=== PATIENT | female | born 1990 | race Caucasian/White ===

== ENCOUNTER 2017-06-09 15:51 | Emergency (ER) | payer BC ==
[~2017-06-09] VITALS: Wt 67.9 kg
[~2017-06-09 15:51] MED LIST: BEN25 PO; FERR27TA PO; HC30CR25 TOP; PREN1TAB49 PO
[2017-06-09] MEDS ORDERED: TRIA15OI9 TOP (16:30)
[2017-06-09] MEDS ORDERED: BEN25 PO (16:30)
[2017-06-09] MEDS ORDERED: CETI10CA PO (16:31)
--- NOTE | 2017-06-09 16:36 | ERD ---
ER Documentation Chief Complaint Chief Complaint RASH AND ITCHING X 2 WEEKS HPI Patient is a 26-year-old female who presents to the emergency department for concerns of a rash and itching to her bilateral hands 2 weeks. Patient denies any new lotions, creams, foods, medications or environmental changes. Patient denies using any medication to the affected areas. Patient states she has had a rash similar to this rash in the past and she was told by a meat boner that it was just her skin. Patient denies any fevers or chills. Patient denies any chest pain, shortness of breath, nausea, vomiting, lip swelling, tongue swelling or loss of consciousness. ROS All systems reviewed and are negative except as per history of present illness. Medications Home Meds Active Scripts Cetirizine Hcl* (Zyrtec*) 10 Mg Capsule, 10 MG PO DAILY, #10 TAB.CHEW Prov:AISHA OTOOLE PA-C 06/09/17 Diphenhydramine Hcl* (Benadryl*) 25 Mg Cap, 25 MG PO Q6, #20 CAP Prov:AISHA OTOOLE PA-C 06/09/17 Triamcinolone Acetonide (Triamcinolone Acetonide) 0.5% - 15 Gm Oint..gm., 1 APPLIC TOP BID, #1 TUB Prov:AISHA OTOOLE PA-C 06/09/17 Diphenhydramine Hcl* (Benadryl*) 25 Mg Cap, 25 MG PO Q6 Y for ITCHING, #30 TAB Prov:INOCENTE STEELE M. 01/22/15 Hydrocortisone* Topical (Hydrocortisone* Topical) 2.5%-28.3 Gm Cream..g., 1 APPLIC TOP BID for 14 Days, TUB Prov:INOCENET STEELE M. 01/22/15 Reported Medications Ferrous Sulfate (Iron) 1 Tab Tablet, 1 TAB PO DAILY 06/03/12 Vits W-Ca,Fe,Fa(<1MG) () 1 Tab Tablet, 1 TAB PO DAILY 06/03/12 Allergies Allergies: Coded Allergies: No Known Allergy (Unverified , 04/03/14) PMhx/Soc History of Surgery: No Anesthesia Reaction: No Hx Neurological Disorder: No Hx Respiratory Disorders: No Hx Cardiac Disorders: No Hx Psychiatric Problems: No Hx Miscellaneous Medical Probl: No Hx Alcohol Use: No Hx Substance Use: No Hx Tobacco Use: No Smoking Status: Never smoker Physical Exam Vitals Vital Signs Date Time Temp Pulse Resp B/P Pulse Ox O2 Delivery O2 Flow Rate FiO2 06/09/17 15:54 98.1 99 18 131/71 99 Physical Exam GENERAL: Well-developed, well-nourished female. Appears in no acute distress. Speaking in full sentences. HEAD: Normocephalic, atraumatic. EYES: Pupils are equally reactive bilaterally. EOMs grossly intact. No conjunctival erythema. ENT: Moist mucous membranes. No uvula deviation. No kissing tonsils. No lip swelling. No tongue swelling. NECK: Supple. No meningismus. Normal range of motion of the neck. EXTREMITIES: Equal pulses bilaterally. No peripheral clubbing, cyanosis or edema. No unilateral leg swelling. NEUROLOGIC: Alert and oriented. Moving all four extremities without any difficulty. Normal speech. Steady gait. SKIN: Erythematous, excoriated skin noted in patient's bilateral dorsal wrists. No lymphatic streaking. No warmth. No active bleeding or discharge. Negative Nikolsky sign. Procedures/MDM MEDICAL DECISION MAKING: This is a 26-year-old female who presents with a rash and itching to her bilateral hands 2 weeks. Vital signs were reviewed. Patient was afebrile. Patient is not diabetic. Skin exam revealed findings consistent with eczema. I encouraged the patient to avoid scratching the lesions. Patient was advised to follow-up with an plumber helper for skin G testing.. I have a much lower clinical concern for necrotizing fasciitis, sepsis, gangrene, Bubba-Fabio syndrome, toxic epidural necrolysis, abscess, cellulitis, herpes zoster, viral exanthem, anaphylaxis, allergic reaction, fungal infection, insect bit. PRESCRIPTIONS: Triamcinolone cream, Benadryl, Zyrtec DISCHARGE: At this time, patient is stable for discharge and outpatient management. I have advised the patient to avoid any new products, creams or possible allergens. I have advised the patient to avoid scratching the lesions. I have instructed the patient to follow-up with his/her primary care physician in 1-2 days. If symptoms persist, patient may need to see a meat boner for further examinations and testing. I have instructed the patient to promptly return to the ER at any time for any new or worsening symptoms including increased pain, fever, redness, swelling, warmth, difficulty breathing or vomiting. The patient and/or family expressed understanding of and agreement with this plan. All questions were answered. Home care instructions were provided. Disclaimer: Inadvertent spelling and grammatical errors are likely due to EHR/ dictation software use and do not reflect on the overall quality of patient care. Also, please note that the electronic time recorded on this note does not necessarily reflect the actual time of the patient encounter. Departure Diagnosis: Primary Impression: Acute eczema of hand Condition: Stable Patient Instructions: Atopic Dermatitis (Eczema) Referrals: LITZY MCGREGOR MD,IRAIDA WHITTEN,FRANCO KIM,THANG CHAU,THANG Calderón [facility] YOU HAVE RECEIVED A MEDICAL SCREENING EXAM AND THE RESULTS INDICATE THAT YOU DO NOT HAVE A CONDITION THAT REQUIRES URGENT TREATMENT IN THE EMERGENCY DEPARTMENT. FURTHER EVALUATION AND TREATMENT OF YOUR CONDITION CAN WAIT UNTIL YOU ARE SEEN IN YOUR DOCTORS OFFICE WITHIN THE NEXT 1-2 DAYS. IT IS YOUR RESPONSIBILITY TO MAKE AN APPOINTMENT FOR FOLOW-UP CARE. IF YOU HAVE A PRIMARY DOCTOR --you should call your primary doctor and schedule an appointment IF YOU DO NOT HAVE A PRIMARY DOCTOR YOU CAN CALL OUR PHYSICIAN REFERRAL HOTLINE AT IF YOU CAN NOT AFFORD TO SEE A PHYSICIAN YOU CAN CHOSE FROM THE FOLLOWING [facility] [address] [facility]. [facility] [address] [facility] [facility] [address] [facility] [facility] [address] [facility] [facility] [address] [facility]. [facility]. [address] [facility]. [facility] YOU HAVE RECEIVED A MEDICAL SCREENING EXAM AND THE RESULTS INDICATE THAT YOU DO NOT HAVE A CONDITION THAT REQUIRES URGENT TREATMENT IN THE EMERGENCY DEPARTMENT. FURTHER EVALUATION AND TREATMENT OF YOUR CONDITION CAN WAIT UNTIL YOU ARE SEEN IN YOUR DOCTORS OFFICE WITHIN THE NEXT 1-2 DAYS. IT IS YOUR RESPONSIBILITY TO MAKE AN APPOINTMENT FOR FOLOW-UP CARE. IF YOU HAVE A PRIMARY DOCTOR --you should call your primary doctor and schedule and appointment IF YOU DO NOT HAVE A PRIMARY DOCTOR YOU CAN CALL OUR PHYSICIAN REFERRAL HOTLINE AT . IF YOU CAN NOT AFFORD TO SEE A PHYSICIAN YOU CAN CHOSE FROM THE FOLLOWING [facility] INSTITUTIONS: [facility] [address] [place] [address] [facility] [address] [place] [address] [facility] [address] [place] [address] Additional Instructions: Call your primary care doctor TOMORROW for an appointment during the next 1-2 days.See the doctor sooner or return here if your condition worsens before your appointment time. Follow up with your doctor for referral to an plumber helper for allergy skin testing. AISHA OTOOLE PA-C Jun 09, 2017 16:36
== END 2017-06-09 16:46 | disposition home or self-care (01) ==
LOC: FTE 15:51
DX: L30.9 Dermatitis, unspecified (principal)
CPT/HCPCS: 99283

== ENCOUNTER 2019-03-10 12:39 | Inpatient (IN) | payer BC ==
[~2019-03-10] VITALS: Ht 154.9 cm; Wt 61.3 kg
[~2019-03-10 12:39] MED LIST changes: +CETI10CA PO; +TRIA15OI9 TOP
[2019-03-10] MEDS ORDERED: LACTATED RINGER'S 1,000 ML IV PRN (16:33)
[2019-03-10 16:44] VITALS: BP 110/72; PULSE 77; RESP 18
[2019-03-10] MEDS ORDERED: OXYTOCIN 30 UNITS/LR 500 ML IV PRN (17:00)
[2019-03-10] MEDS ORDERED: CARBOPROST 250 MCG INJ IM PRN (17:00)
[2019-03-10] MEDS ORDERED: IBUPROFEN 600 MG TAB PO PRN (17:00)
[2019-03-10] MEDS ORDERED: OXYTOCIN 30 UNITS/LR 500 ML IV SCH ×3 (17:00→17:30)
[2019-03-10] MEDS ORDERED: METHYLERGONOVINE 0.2 MG INJ IM PRN (17:00)
[2019-03-10] MEDS ORDERED: LIDOCAINE 1% (MPF) 30 ML INJ INJ PRN (17:00)
[2019-03-10] MEDS ORDERED: MISOPROSTOL 200 MCG TAB PR PRN (17:00)
[2019-03-10] MEDS ORDERED: BUTORPHANOL 2 MG INJ IV PRN (17:00)
[2019-03-10] MEDS: LACTATED RINGER'S 1,000 ML IV SCH ×2 (17:08→22:15)
[2019-03-10 17:10] VITALS: Ht 154.9 cm; Wt 61.3 kg
[2019-03-10] MEDS ORDERED: MINERAL OIL LIGHT 10 ML VIAL TOP PRN (22:30)
--- NOTE | 2019-03-11 05:37 | PREOPHP ---
DATE OF ADMISSION: 03/10/2019 HISTORY OF PRESENT ILLNESS: Ms. Ernestina Dowell is a 28-year-old 2, para 1, EDC 03/14/2019 intrauterine at 39 weeks and 3 days gestational age initially referred for delivery by perinatologist, Dr. Bhakta, secondary to low growth profile and abnormal blood flow to the middle cerebral artery; however, patient was in labor and denies any vaginal bleeding or discharge. Her care took place at approximately 18 weeks at [facility]. PAST MEDICAL HISTORY: None. MEDICATIONS: vitamins. PAST SURGICAL HISTORY: None. OBSTETRICAL HISTORY: Vaginal delivery x1. GYNECOLOGIC HISTORY: Twelve, regular 3 to 4 days. Denies any sexually transmitted infections. Sexually active with 1 partner. SOCIAL HISTORY: Denies any smoking, drugs or alcohol. FAMILY HISTORY: None. REVIEW OF SYSTEMS: All within normal except history of present illness. PHYSICAL EXAMINATION: HEENT: Within normal. LUNGS: CTA bilateral. CARDIOVASCULAR: S1, S2, regular rhythm. ABDOMEN: Gravid, nontender. Negative CVA bilateral. EXTREMITIES: Negative. No calf tenderness. PELVIC: Vaginal exam 2, 70 -2. heart tracing category 1. [place] regular contractions. Estimated weight at 31 percentile, weight 3293 grams. Ultrasound demonstrated the fetus has a decreased function of the right and left heart ventricles abnormal cerebral placental ratio. ASSESSMENT: Intrauterine at term in labor. PLAN: Anticipate vaginal delivery. Consider Pitocin as needed. Please note, NICU knot bumper is aware. Dictated By: FRANCO PETIT/AYDIN Conf#: [id number] DID#: [id number] MTDD
[2019-03-11] MEDS ORDERED: OXYTOCIN 30 UNITS/LR 500 ML IV SCH (05:52)
--- NOTE | 2019-03-11 05:52 | LDN ---
Date/Time of Note Date/Time of Note DATE: 03/11/19 TIME: 05:50 Delivery Summary Weeks of Gestation 39 Placenta Delivered: Spontaneously Meconium: none Episiotomy: Yes Laceration repair: rmle repair with 2-0 and 3-0 chromic Anesthesia type: Local Estimated blood loss: 200 Sponge & Needle done & correct: Yes All needle counts correct: Yes Any foreign bodies felt in the: No Infant Delivery Information Sex Infant Sex: female Apgars 1 Minute: 8 5 Minute: 9 Suctioning Nose & mouth suctioned at peter: No Delee suction performed: No Umbilical Cord Umbilical cord with: 3 Vessels Cord presentations: no nuchal cord Cord Blood was obtained: Yes Mother & Baby Disposition Disposition Mom & Baby to Maternity; Good: Yes Mom transferred to: Other () Baby to NICU: No FRANCO SIMMS MD Mar 11, 2019 05:52
[2019-03-11] MEDS ORDERED: NACL 0.9% 3 ML SYG IV SCH (06:00)
[2019-03-11] MEDS ORDERED: WITCH HAZEL/GLYCERIN PAD PR PRN (06:00)
[2019-03-11] MEDS ORDERED: METHYLERGONOVINE 0.2 MG INJ IM PRN (06:00)
[2019-03-11] MEDS ORDERED: BENZOCAINE 20% 56 ML SPRAY TOP PRN (06:00)
[2019-03-11] MEDS ORDERED: MISOPROSTOL 200 MCG TAB PR PRN (06:00)
[2019-03-11] MEDS ORDERED: CARBOPROST 250 MCG INJ IM PRN (06:00)
[2019-03-11] MEDS ORDERED: OXYCODONE/ASPIRIN (4.88/325) TAB PO PRN ×2 (06:00)
[2019-03-11] MEDS ORDERED: LANOLIN HPA 1 PKT TOP PRN (06:00)
[2019-03-11] MEDS ORDERED: DIPHENHYDRAMINE 25 MG CAP PO PRN (06:00)
[2019-03-11] MEDS ORDERED: OXYTOCIN 30 UNITS/LR 500 ML IV PRN (06:00)
[2019-03-11] MEDS ORDERED: ONDANSETRON 4 MG INJ IV PRN (06:00)
[2019-03-11] MEDS: IBUPROFEN 600 MG TAB PO SCH ×4 (07:58→23:35)
[2019-03-11 08:50] VITALS: BP 113/64; PULSE 52; RESP 18
[2019-03-11] MEDS: SENNA/DOCUSATE NA (8.6MG/50MG) TAB PO SCH ×2 (11:00→21:12)
[2019-03-11 12:10] VITALS: BP 119/68; PULSE 58; RESP 18
[2019-03-11 15:30] VITALS: RESP 18
[2019-03-11 16:20] VITALS: BP 103/58; PULSE 59; RESP 16
[2019-03-11 20:00] VITALS: BP 100/57; PULSE 63; RESP 20
[2019-03-12 04:22] VITALS: BP 104/65; PULSE 75; RESP 20
[2019-03-12] MEDS: IBUPROFEN 600 MG TAB PO SCH ×2 (05:29→11:45)
--- NOTE | 2019-03-12 08:07 | DS ---
Date/Time of Note Date/Time of Note DATE: 03/12/19 TIME: 08:07 Obstetrical Discharge Record Final Diagnosis Final Diagnosis: Term delivered Vaginal Delivery Obstetrical Delivery: Spontaneous, Episiotomy, Repaired Complications Other (see perinatology notes) Augmentation: Yes Condition on Discharge Physical Assessment Last Vitals: stable afebrile Voiding: Yes Bowel Movement: Yes Breast: Soft, non-tender, Filling Fundus: Firm Abdomen and Incision: soft nt Calf Tenderness: No Patient Condition: FRANCO Cruz MD Mar 12, 2019 08:07
--- NOTE | 2019-03-12 08:08 | PD.PPDC ---
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
[2019-03-12 08:20] VITALS: BP 95/53; PULSE 74; RESP 17
[2019-03-12] MEDS: SENNA/DOCUSATE NA (8.6MG/50MG) TAB PO SCH (08:54)
--- NOTE | 2019-03-13 16:06 | DELSUM ---
Delivery Summary A-C Datetime Report Generated by CPN: 03/13/2019 16:05 DELIVERY PERSONNEL Business Process Architect: Jarad Louise MATERNAL INFORMATION Delivery Anesthesia: None Medications in Delivery: 30 units of pitocin LR Delivery QBL (ml): 200 Placenta Cultured: No Maternal Complications: None LABOR SUMMARY EDC: 03/14/2019 00:00 No. Babies in Womb: 1 Attempted: No Labor Anesthesia: None LABOR INFORMATION Reason for Induction: Other Reason for Induction- Other: 39.3 WKS Oxytocin: Augmentation Group B Beta Strep: Negative Antibiotics # of Doses: 0 Steroids Given: None Reason Steroids Not Administered: Not Applicable MEMBRANES Membranes Rupture Method: Artificial Rupture of Membranes: 03/11/2019 04:51 Length of Rupture (hr): 0.62 Amniotic Fluid Color: Clear Amniotic Fluid Amount: Small STAGES OF LABOR Stage 3 hr: 0 Stage 3 min: 3 VAGINAL DELIVERY Episiotomy: Right Mediolateral Laceration Repair: Yes Initial Vag Sponge Count: 10 Final Vag Sponge Count: 10 Initial Vag Sharps Count: 1+2 Final Vag Sharps Count: 3 Sponge Count Correct: Yes; Vaginal Sweep Performed Sharps Count Correct: Yes BABY A INFORMATION Delivery Date/Time: 03/11/2019 05:28 Method of Delivery: Vaginal Born in Route : No : N/A Forceps: N/A Vacuum Extraction: N/A Shoulder Dystocia : N/A SHOULDER DYSTOCIA BABY A Delivery Date/Time: 03/11/2019 05:28 PRESENTATION/POSITION BABY A Presentation: Cephalic Cephalic Presentation: Vertex Vertex Position: Left Occipital Posterior Breech Presentation: N/A PLACENTA INFORMATION BABY A Placenta Delivery Time : 03/11/2019 05:31 Placenta Method of Delivery: Spontaneous Placenta Status: Delivered SCORES BABY A Heart Rate 1 min: >100 bpm Resp Effort 1 min: Good Cry Reflex Irritability 1 min: Cough/Sneeze/Pulls Away Muscle Tone 1 min: Active Motion Color 1 min: Blue/Pale Resuscitation Effort 1 min: Tactile Stimulation SCORE 1 MIN: 8 Heart Rate 5 min: >100 bpm Resp Effort 5 min: Good Cry Reflex Irritability 5 min: Cough/Sneeze/Pulls Away Muscle Tone 5 min: Active Motion Color 5 min: Body Aline, Extremit Blue Resuscitation Effort 5 min: Tactile Stimulation SCORE 5 MIN: 9 INFANT INFORMATION BABY A Gestational Age at Delivery: 39.4 Gestational Status: Full Term- 39- 40.6 Weeks Infant Outcome : Liveborn, with signs of life Infant Condition : Stable Sex: Female IDENTIFICATION/MEDS BABY A ID Band Number: [id number] ID Band Location: Right Leg; Left Arm Sensor Applied: Yes Sensor Number: [id number] Sensor Location : Cord Clamp Vitamin K Given : Not Given Erythromycin Given: Not Given WEIGHT/LENGTH BABY A Infant Birthweight (gm): 3205 Infant Weight (lb): 7 Weight (oz): 1 Length (in): 20.75 Infant Length (cm): 52.71 CORD INFORMATION BABY A No. Cord Vessels: 3 Nuchal Cord : N/A Cord Blood Taken: Yes Banking/Donate Info: NO Suction: Mouth; Nose ASSESSMENT BABY A Infant Complications: None Physical Findings at Delivery: Molding of the Head Respirations: Appears Normal Network Analyst/ALS Called : No Care By: viji carmen RN Transferred To: Remains with Mother
== END 2019-03-12 15:20 | disposition home or self-care (01) | DRG 807 ==
LOC: L-D 12:39 → PP1 03-11 08:45
PROVIDERS: ADMIT Obstetrics & Gynecology; ATTEND Obstetrics & Gynecology
PROC: 10E0XZZ Delivery of Products of Conception, External Approach (ICD-10-PCS; principal; 2019-03-10)
PROC: 0W8NXZZ Division of Female Perineum, External Approach (ICD-10-PCS; 2019-03-10)
DX: O80 Encounter for full-term uncomplicated delivery (principal); Z37.0 Single live birth; Z3A.39 39 weeks gestation of pregnancy
CPT/HCPCS: 76815; 85025; 85610; 85730; 86592; 86850; 86900; 86901; 87340; 99464; J2590; J7120